=== PATIENT | male | born 1985 | race Caucasian/White ===

== ENCOUNTER → 2017-10-29 10:50 | Outpatient (REF) | payer SELFPAY | LOC: OM 10:50 | PROVIDERS: PCP Family Medicine; Visit Provider Nurse Practitioner Family | DX: Z02.83 Encounter for blood-alcohol and blood-drug test (principal) ==

== ENCOUNTER → 2017-10-29 10:51 | Outpatient (REF) | payer SELFPAY | LOC: OM 10:51 | PROVIDERS: PCP Family Medicine; Visit Provider Nurse Practitioner Family | DX: Z02.1 Encounter for pre-employment examination (principal) ==

== ENCOUNTER 2023-07-12 15:38 | Emergency (ER) | payer MEDICAID, SELFPAY ==
[2023-07-12 15:41] VITALS: BP 142/87; PULSE 98; RESP 16; TEMP 36.8; O2SAT 97
--- NOTE | 2023-07-12 15:45 | RT.EKG_ITS ---
APPROVED REPORT Exam: Resting ECG Reason for Exam: chest pain Patient Location: E HR:87 bpm ECG Measurements Heart Rate 87 AXIS HI 151 P 51 QRSd 82 QRS 52 QT 357 T 17 QTc 429 Conclusion Sinus rhythm...normal P axis, V-rate 60- 99 Probable left atrial enlargement...P >50mS, <-0.10mV V1 sinus rhythm, normal axis, normal intervals, non ischemic
--- NOTE | 2023-07-12 15:52 | ED.GENADUL_ITS ---
Discharge Plan Disposition Patient Disposition: Home Discharge Details Clinical Impression: Anxiety as acute reaction to gross stress Primary Care Provider: Unknown,Unknown ED Provider: Stan Agosto Home Meds and New Rx's Prescriptions: New hydroxyzine HCl 25 mg tablet 25 mg PO BID PRN (Reason: anxiety) Qty: 10 0RF Discharge Instructions Instructions: Anxiety (ED) Additional Instructions: At this time we are not seeing any sign of cardiac source for your chest discomfort. It is highly plausible this was a anxiety reaction secondary to the level of stress that you are experiencing. You have been prescribed a medication to help with your anxiety please take as prescribed. Return to the emergency department for any new or significant worsening of symptoms otherwise follow-up with your primary care provider as needed for reassessment Referrals: Primary Care Provider [Outside] (As needed for reassessment) Discharge Data Discharge Date/Time-TO BE ENTERED AT DEPARTURE: 07/12/23 18:37 HPI General Mode of arrival: EMS . Date/Time Provider Initiated Documentation: 07/12/23 15:52 . Limitations to Documentation: no limitations . Information obtained by: patient and RN notes reviewed . History of Present Illness 38 year old M presents to the emergency department with the chief complaint of chest pressure, described as moderate, Quality is described as other (pressure), and is localized to the chest. Patient extremity. Patient started experiencing this hour(s) (<1) and it has been constant. No relieving factors improve symptom(s), Patient did receive the following treatments prior to arrival, none Related Data Home Medications Medication Instructions Recorded Confirmed hydroxyzine HCl 25 mg tablet 25 mg PO BID PRN anxiety #10 tabs 07/12/23 Previous Rx's Medication Instructions Recorded hydroxyzine HCl 25 mg tablet 25 mg PO BID PRN anxiety #10 tabs 07/12/23 Allergies Allergy/AdvReac Type Severity Reaction Status Date / Time No Known Allergies Allergy Unverified 07/12/23 15:41 General Stated Complaint: Anxiety KEILA: 5 Review of Systems Constitutional Constitutional: Denies chills, Denies fever(s), Denies headache(s) and Reports malaise ENT Ears, Nose, Mouth, and Throat: Denies headache(s) Cardiovascular Cardiovascular: Reports as per HPI, Reports chest pain, Denies chest pain with a ctivity, Denies syncope, Denies irregular heart rhythm, Denies palpitations and Reports dyspnea Respiratory Respiratory: Reports cough, Denies hemoptysis and Reports dyspnea Gastrointestinal Gastrointestinal: Denies abdominal pain, Denies nausea and Denies vomiting Neurologic Neurologic: Denies syncope and Denies headache(s) Psychiatric Psychiatric: Denies anxiety Endocrine Endocrine: Denies cold intolerance, Denies heat intolerance and Denies palpitations Exam Const General: cooperative, not diaphoretic and not ill appearing Nutritional Appearance: average body habitus Orientation: alert, awake and oriented x3 Limitations: mental status not altered Neck Neck: normal visual inspection, full ROM, trachea midline, supple and no anterior neck swelling Carotids: normal carotid upstroke and no bruits Resp Effort & Inspection: normal respiratory effort, able to speak in complete sentences, no grunting, not labored and tachypneic Auscultation: clear to auscultation bilaterally Cardio Jugular venous pressure: no JVD Palpation: normal PMI Rate: regular rate Rhythm: regular rhythm Heart Sounds: S1 normal, S2 normal, no click, no gallops, no murmurs and no rubs Bruits: no abdominal aortic bruits and no carotid bruits Pulses: radial pulses present bilaterally 2+ Skin General skin exam: no rashes or lesions noted Neuro General: patient alert, patient awake, patient oriented x3, tone normal and moves all extremities Course Vital Signs Vital signs: Vital Signs Temperature 36.8 C 07/12/23 15:41 Pulse 98 H 07/12/23 15:41 Respiratory Rate 16 07/12/23 15:41 Blood Pressure 142/87 H 07/12/23 15:41 Pulse Oximetry 97 07/12/23 15:41 Temperature 36.8 C 07/12/23 15:41 Temperature Source Temporal Artery Scan 07/12/23 15:41 Pulse 98 H 07/12/23 15:41 Respiratory Rate 16 07/12/23 15:41 Respiratory Effort Normal, Non-Labored 07/12/23 15:43 Blood Pressure 142/87 H 07/12/23 15:41 Blood Pressure Position Sitting 07/12/23 15:41 Pulse Oximetry 97 07/12/23 15:41 Oxygen Delivery Method Room Air 07/12/23 15:41 Oxygen Flow Rate 0 07/12/23 15:41 Pain Level 0 07/12/23 15:41 Medical Decision Making Patient presenting to the emergency department for chief complaint of chest pressure and tingling down left arm. Patient reports that he received a bad news today that his is leaving him, grandmother has cancer, and is residing in a homeless [facility]ci. While he was there he started having some tingling and discomfort in left arm and felt short of breath causing the staff at the fci to call 911. Patient states that he has a significant family cardiac history with multiple family members having cardiovascular disease, he is a daily smoker, previous substance abuse but has not had any drugs or alcohol in a while. Also states medical history of depression anxiety and PTSD but has been off his medication for 8 months and states that this is not typical for a panic attack but also does not rule it out. Physical exam is noncontributory beyond noting tachypnea. Vital signs show slight tachycardia, and and slight hypertension but otherwise stable. Will plan on performing cardiac workup to rule out emergent cardiovascular episode but high suspicion of of anxiety type reaction so we will give hydroxyzine pending results. Please see physician interpretation for full interpretation of EKG but upon my review patient is in sinus rhythm, controlled rate, T wave inversion in lead III otherwise does not meet STEMI criteria and otherwise is nondiagnostic. Reviewed patient's labs and CBC is nondiagnostic, D-dimer is negative, CMP unremarkable, troponin negative less than 50/nondetected. Reassessed patient and patient states significant improvement of symptoms after medication and is requesting to leave. Patient states he feels that this was more panic anxiety related which again was highly suspicious. 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 Delta troponin still nondetected. Will discharge patient with limited prescription for hydroxyzine to use for further anxiety otherwise to follow-up with primary care provider return for new or worsening symptoms. After discussion of diagnosis and plan of care patient has no further needs, questions, or concerns and states clear understanding to return to the emergency department for any worsening symptoms. This documentation was generated using [employer] [employer] system, please disregard any oddities of phrase or misspellings. Quality:SDOH Health Related Social Needs: No Data to Display PFSH All Active Problems (Updated 07/12/23 @ 18:03 by Stan Agosto NP) Anxiety as acute reaction to gross stress (Acute) Family History Mother Depression Father Diabetes Heart disease Asthma Sister No problems noted. Brother Substance abuse Grandfather Diabetes Essential hypertension Depression Grandfather Essential hypertension Heart disease Heart transplanted Asthma Grandmother Diabetes Grandmother Essential hypertension Stroke Social History Smoking/Tobacco Use Status: Former Tobacco Use Smoking risk assessment performed?: Yes Alcohol Intake: former Drug use: Never Substance use type: marijuana Housing: homeless Do you feel safe in your relationship?: Yes Additional Social history: left pt recently
[2023-07-12] MEDS: hydrOXYzine HCL 25 MG TAB PO (16:04)
[2023-07-12 16:16] LABS: Abs Immature Grans 0.03 10^3/uL (0.0-0.06); Absolute Basophil Count 0.01 10^3/uL (0.0-0.2); Absolute Eosinophil Count 0.01 10^3/uL (0.0-0.7); Absolute Monocyte Count 0.35 10^3/uL (0.1-0.8); Basophils % 0.1; Eosinophils % 0.1; HCT 46.4 % (40.0-50.0); HGB 16.6 g/dL (13.5-17.5); Immature Grans % 0.3; Lymphocytes % 11.8; MCH 28.8 pg (27.0-33.0); MCHC 35.8 % (32.0-36.0); MCV 80 fL (80-95); Monocytes % 3.4; Neutrophils % 84.3; Platelet Count 196 10^3/uL (130-400); RBC 5.77 10^6/uL (4.36-5.78); RDW 11.7 % (11.8-14.1); RDW-SD 33.6 fL
[2023-07-12 16:45] LABS: D-Dimer 314 ng/mlFEU (<500)
[2023-07-12 16:52] LABS: ALT 29 U/L (16-63); AST 22 U/L (15-37); Albumin 4.4 g/dL (3.4-5.0); Alkaline Phosphatase 77 U/L (46-116); Anion Gap 10.9 mmol/L (3-11); BUN 9 mg/dL (7-18); Bilirubin, Total 0.4 mg/dL (0.2-1.0); CO2 27.1 mmol/L (21.0-32.0); Calcium 9.3 mg/dL (8.5-10.1); Chloride 104 mmol/L (98-107); Estimated GFR 100.03 (mL/min/1.73m2); Glucose 105 mg/dL (74-106); Magnesium 1.9 mg/dL (1.8-2.4); Potassium 4.4 mmol/L (3.5-5.1); Sodium 142 mmol/L (136-145); Total Protein 8.4 g/dL (6.4-8.2)
[2023-07-12 16:54] LABS: Troponin I < 50 ng/L (< or =60)
[2023-07-12 18:08] LABS: Troponin I < 50 ng/L (< or =60)
[2023-07-12 18:37] VITALS: BP 142/87; PULSE 87; RESP 16; TEMP 36.8; O2SAT 97
--- NOTE | 2023-07-13 14:22 | NUR.NOTE ---
Accessed chart to get patient information for RCT authorization form. Faxed to [facility]. Nursing Note:
== END 2023-07-12 18:37 | disposition home or self-care (01) ==
PROVIDERS: Emergency Provider Nurse Practitioner Family
DX: F43.0 Acute stress reaction (principal); F41.9 Anxiety disorder, unspecified; Z59.01 Sheltered homelessness
CPT/HCPCS: 36415; 80053; 93005; 99283; 83735; 84484; 85025; 85379; 93010